=== PATIENT | female | born 1990 | race African-American/Black ===

== ENCOUNTER → 2020-06-05 | Outpatient (CLI) | payer OTHER ==
[2020-06-05 12:06] LABS: Basophils % (A) 0 %; Eosinophils % (A) 1 %; HCT 32.8 % (34.0-46.0); HGB 10.9 gm/dL (11.4-16.0); Lymphocytes # (A) 0.5 k/uL (1.0-4.8); Lymphocytes % (A) 10 %; MCH 36.7 pg (25.0-35.0); MCHC 33.2 g/dL (31.0-37.0); MCV 110.6 fL (80.0-100.0); Macrocytosis Marked; Mean Platelet Volume 7.6; Monocytes # (A) 0.3 k/uL (0-1.0); Monocytes % (A) 6 %; Neutrophils # (A) 4.2 k/uL (1.3-7.7); Neutrophils % (A) 81 %; Platelet Count 257 k/uL (150-450); RBC 2.97 m/uL (3.80-5.40); RDW 12.4 % (11.5-15.5); WBC 5.1 k/uL (3.8-10.6)
[2020-06-05 12:35] LABS: Poikilocytosis (M) Present
[2020-06-05 20:53] LABS: African American GFR (CKD) 142.8 (60.0-200.0); Albumin 3.9 g/dL (3.80-4.90); Albumin/Globulin Ratio 1.63 (1.60-3.17); Anion Gap 9.4 mmol/L (4.00-12.00); BUN/Creat Ratio 11.67 Ratio (12.00-20.00); Calcium 9.5 mg/dL (8.7-10.3); Carbon Dioxide 21.6 mmol/L (21.6-31.8); Globulin 2.4 g/dL (1.6-3.3); Non-African American GFR(CKD) 123.2 (60.0-200.0); Potassium 4.1 mmol/L (3.5-5.5); Total Bilirubin 0.9 mg/dL (0.2-1.2); Total Protein 6.3 g/dL (6.2-8.2)
== END | disposition home or self-care (01) ==
LOC: LABWHC1 11:04
PROVIDERS: ATTEND Internal Medicine Cardiovascular Disease
DX: R06.02 Shortness of breath (principal); R55 Syncope and collapse
CPT/HCPCS: 36415; 80053; 85025; 85379

== ENCOUNTER 2020-08-19 10:10 | Inpatient (IN) | payer OTHER ==
[2020-08-19 11:31] LABS: Basophils % (A) 0 %; Eosinophils % (A) 1 %; HCT 32.9 % (34.0-46.0); HGB 11.4 gm/dL (11.4-16.0); Lymphocytes # (A) 0.6 k/uL (1.0-4.8); Lymphocytes % (A) 15 %; MCH 36.5 pg (25.0-35.0); MCHC 34.6 g/dL (31.0-37.0); MCV 105.7 fL (80.0-100.0); Macrocytosis Slight; Monocytes # (A) 0.3 k/uL (0-1.0); Monocytes % (A) 8 %; Neutrophils # (A) 2.9 k/uL (1.3-7.7); Neutrophils % (A) 73 %; Platelet Count 188 k/uL (150-450); RBC 3.11 m/uL (3.80-5.40); RDW 12.5 % (11.5-15.5); WBC 3.9 k/uL (3.8-10.6)
[2020-08-19 11:42] LABS: ALT 18 U/L (4-34); AST 25 U/L (14-36); African American GFR (CKD) >90 (>60 ml/min/1.73 sqM); Blood Urea Nitrogen 6 mg/dL (7-17); Non-African American GFR(CKD) >90 (>60 ml/min/1.73 sqM); Uric Acid 5.1 mg/dL (3.7-7.4)
[2020-08-19 12:56] LABS: Creatinine,Urine Random 36.1 mg/dL; Protein/Creatinine Ratio,Urine 0.332
[2020-08-19] MEDS ORDERED: CITRIC ACID-SODIUM CITRATE 15 ML CUP PO ONE (14:32)
[2020-08-19] MEDS ORDERED: LACTATED RINGERS 1,000 ML IV ONE (14:32)
[2020-08-19] MEDS ORDERED: LACTATED RINGERS 1,000 ML IV SCH (14:45)
[2020-08-19] MEDS ORDERED: MORPHINE SULFATE (PF) 0.3 MG/0.3 ML SYR ONE (16:39)
[2020-08-19] MEDS ORDERED: ePHEDrine SULFATE/0.9% NACL/PF 50 MG/5 ML SYRINGE IV ONE (16:39)
[2020-08-19] MEDS ORDERED: ONDANSETRON 4 MG/2 ML VIAL ONE (16:39)
[2020-08-19] MEDS ORDERED: OXYTOCIN 10 UNIT/ML 1 ML VIAL ONE (16:39)
[2020-08-19] MEDS ORDERED: KETOROLAC 15 MG/ML 1 ML VIAL ONE (16:39)
[2020-08-19] MEDS ORDERED: diphenhydrAMINE 50 MG CAP PO PRN (17:13)
[2020-08-19] MEDS ORDERED: KETOROLAC 15 MG/ML 1 ML VIAL IVP PRN ×2 (17:13→22:11)
[2020-08-19] MEDS ORDERED: ONDANSETRON 4 MG/2 ML VIAL IVP PRN (17:13)
[2020-08-19] MEDS ORDERED: diphenhydrAMINE 50 MG/ML 1 ML VIAL IVP PRN ×2 (17:13)
[2020-08-19] MEDS ORDERED: METOCLOPRAMIDE 5 MG/ML 2 ML VIAL IVP PRN (17:13)
[2020-08-19] MEDS ORDERED: diphenhydrAMINE 25 MG CAP PO PRN (17:13)
[2020-08-19] MEDS ORDERED: NALOXONE 0.4 MG/ML 1 ML VIAL IV PRN (17:13)
[2020-08-19] MEDS ORDERED: HYDROcodone/APAP 7.5-325MG 1 EACH TAB PO PRN (17:13)
[2020-08-19] MEDS ORDERED: ZOLPIDEM 5 MG TAB PO PRN (17:13)
[2020-08-19] MEDS ORDERED: ACETAMINOPHEN TAB 325 MG TAB PO PRN (17:13)
--- NOTE | 2020-08-19 17:15 | P.HPOB ---
History of Present Illness H&P Date: 08/19/20 Chief Complaint: Regnancy at term: Mild preeclampsia Patient is a 30-year-old with a prior section that was seen in my office today. We had previously discussed versus trial of labor, however her cervix is closed and baby is not engaged and add exam during the section breech is noted. Due to her nonfavorable cervix and with her noted to have mild elevation blood pressure in the office 150/90 she was sent to labor and delivery for preeclamptic labs and serial blood pressures. In labor and delivery she had multiple abnormal blood pressures including 1 was 170/79 as well as multiple 150s over 90s. Due to the fact she is 37 weeks and has elevate blood pressures decision for delivery was made. She is noted to have normal labs other than her protein creatinine ratio which is 0.33. Suspected mild preeclampsia is noted and risks/benefits/alternatives to a repeat section were reviewed with the patient in detail and all questions were answered for her prior to proceeding to the operative room. Normal liver enzymes and p latelets are noted. Past Medical History Past Medical History: Asthma History of Any Multi-Drug Resistant Organisms: None Reported Past Surgical History: Section Past Anesthesia/Blood Transfusion Reactions: No Reported Reaction Past Psychological History: No Psychological Hx Reported Smoking Status: Never smoker Past Alcohol Use History: Occasional Past Drug Use History: None Reported - Past Family History Father Family Medical History: Diabetes Mellitus Medications and Allergies Home Medications Medication Instructions Recorded Confirmed Type Pnv No.95/Ferrous Fum/Folic AC 1 each PO DAILY 08/19/20 08/19/20 History [ Multivitamin Tablet] Allergies Allergy/AdvReac Type Severity Reaction Status Date / Time No Known Allergies Allergy Verified 08/19/20 10:20 Exam Osteopathic Statement: *. No significant issues noted on an osteopathic structural exam other than those noted in the History and Physical/Consult. Vital Signs Temp Pulse Resp BP 08/19/20 13:43 96.4 F L 67 16 136/86 08/19/20 13:27 137/78 08/19/20 11:10 67 16 137/92 Intake and Output 08/19/20 08/19/20 08/19/20 06:59 14:59 22:59 Other: # Voids 1 Weight 86.183 kg - OBG Physical Exam Breast: both: normal (no masses) Abdomen: bowel sounds normal, no diffuse tenderness, no bruit present, no guarding noted, no hepatomegaly, no splenomegaly, no mass Vulva: both: normal Vagina: normal moisture, no discharge Cervix: no lesion, no discharge Uterus: normal size, normal contour Adnexa: both: normal Anus/Rectum: normal perianal skin, no rectal mass, no hemorrhoids, heme negative Results Result Diagrams: 08/19/20 11:20 08/19/20 11:20 Abnormal Lab Results - Last 24 Hours (Table) 08/19/20 08/19/20 Range/Units 11:20 11:20 RBC 3.11 L (3.80-5.40) m/uL Hct 32.9 L (34.0-46.0) % MCV 105.7 H (80.0-100.0) fL MCH 36.5 H (25.0-35.0) pg Lymphocytes # 0.6 L (1.0-4.8) k/uL BUN 6 L (7-17) mg/dL
--- NOTE | 2020-08-19 17:19 | P.OP ---
Date of Procedure: 08/19/20 Preoperative Diagnosis: Intrauterine at term: Mild preeclampsia: Previous section Postoperative Diagnosis: Same with breech presentation (double footling) Procedure(s) Performed: Repeat low transverse section Anesthesia: spinal Surgeon: Berny Hernandez Medical Transcription #1: Nilay Jaffe Estimated Blood Loss (ml): 400 IV fluids (ml): 600 Urine output (ml): 200 Pathology: other (Placenta) Condition: stable Disposition: floor Operative Findings: Female scores of 9 and 9 at one and 5 minutes respectively and the weight was 5 lbs. 11 oz. Description of Procedure: Patient was taken to the operative suite where a spinal anesthetic was found be adequate. She was prepped and draped in the normal sterile fashion and placed in the dorsal supine position with leftward tilt. Initially a Pfannenstiel skin incision was made and this incision was then carried through to the underlying layer of the fascia with the second knife. Fascia was then nicked in the midline and this opening was extended laterally with Woodard scissors. Superior and inferior aspect of this incision were then grasped tented up and bluntly and sharply dissected off the rectus muscles. Rectus muscles were then divided the midline and sharp dissected peritoneum was performed. This opening was then extended superiorly and inferiorly with good visualization of both bowel bladder. Bladder blade was then placed bladder flap identified and entered with Metzenbaum scissors. This opening was then extended across face uterus with Metzenbaum scissors and the bladder was dissected out of the operative field once this was accomplished knife was used to incise uterus this opening was then fully extended with a hemostat and clear fluid is noted on artificial rupture membranes. It was noted prior to delivery that there was no presenting part and on investigation baby is noted to be in double footling breech presentation both feet are grasped and brought down into the incision with gentle traction we were able to deliver the buttocks and all the way to the shoulders arms were then swept from the face and with a nuchal cord 1 noted baby's head was easily delivered mouth nares are then bulb suctioned and baby was turned over to nursery personnel with the umbilical cord clamped and cut in usual fashion. Center was then delivered intact Pitocin was added to the IV. Uterus was then exteriorized cleared of clots and debris and closed in 2 layers with 0 Vicryl suture. Once excellent hemostasis was obtained blood and debris was suctioned from the posterior cul-de-sac and uterus was reinserted into the abdomen. Peritoneal layer was then reapproximated with 3-0 Vicryl. Fascial layer was closed with 0 Vicryl suture. One layer of 3-0 Vicryl was placed in deep subcuticular tissues to reapproximate skin and close space. Due to some keloiding with suture with her last delivery [place] were placed we'll plan to remove a few days after section to decrease risk of continued irrigation again. Sponge, lap, needle counts were all correct 2. Patient was then taken to the recovery room in stable and satisfactory condition.
[2020-08-19] MEDS: OXYTOCIN 30 UNITS/500 ML NS 30 UNIT in SALINE 1 500ML.BAG IV SCH ×2 (19:18→20:38)
[2020-08-19] MEDS ORDERED: ACETAMINOPHEN IV (For NPO) 1,000 MG in EMPTY BAG 1 BAG IVPB STA (19:31)
[2020-08-19] MEDS: LACTATED RINGERS 1,000 ML IV SCH (21:42)
[2020-08-19] MEDS: SENNOSIDES-DOCUSATE SODIUM 1 EACH TAB PO SCH (21:43)
[2020-08-20] MEDS: LACTATED RINGERS 1,000 ML IV SCH ×2 (00:54→20:29)
--- NOTE | 2020-08-20 07:51 | P.PN ---
Progress Note - Text Progress Note Date: 08/20/20 Postoperative day 1 status post section under spinal anesthesia and in trathecal Duramorph for postoperative analgesia.The patient is doing well, there is mild generalized skin itching. There are no other anesthesia related complications. The patient denies any paresthesia or weakness in the lower extremities. Further management as per the patient primary team.
[2020-08-20 08:12] LABS: Basophils % (A) 0 %; Eosinophils % (A) 1 %; HCT 25.4 % (34.0-46.0); Lymphocytes # (A) 0.5 k/uL (1.0-4.8); Lymphocytes % (A) 8 %; MCH 34.5 pg (25.0-35.0); MCHC 32.4 g/dL (31.0-37.0); MCV 106.4 fL (80.0-100.0); Macrocytosis Moderate; Mean Platelet Volume 10.1; Monocytes # (A) 0.2 k/uL (0-1.0); Monocytes % (A) 4 %; Neutrophils # (A) 5.2 k/uL (1.3-7.7); Neutrophils % (A) 86 %; Platelet Count 187 k/uL (150-450); RBC 2.39 m/uL (3.80-5.40); RDW 13.3 % (11.5-15.5)
[2020-08-20 08:14] LABS: HGB 8.2 gm/dL (11.4-16.0)
[2020-08-20] MEDS: SENNOSIDES-DOCUSATE SODIUM 1 EACH TAB PO SCH ×2 (08:39→20:30)
--- NOTE | 2020-08-20 09:50 | P.PNOBGPC ---
Subjective - Subjective Principal diagnosis: Postop day 1 Interval history: Patient is seen and evaluated. Last night she was having some passage of large clots and some suboptimal firmness to her uterus that she was having some increase in bleeding, I did come and evaluate her. However just before I came in the had switched the IV, and IV site and this seemed to resolve her bleeding and she has had scant bleeding ever since. She voices no complaints this morning. She is requesting shower and advancement of diet which we will do later today. All the questions are answered for her at this time. Her vital signs are stable and afebrile. It is noted that her lower is 8.2 this morning 11, however her initial CBC yesterday was done when she was dehydrated and between the time that she was admitted until the she got quite a bit of IV fluids which likely with skew this slightly. We'll likely discharge her home on iron supplementation however. Heart regular, lungs clear, extremities are without pain. Abdomen soft uterus is firm and her incision is otherwise intact. Assessment postop day 1. Plan continue current care. Objective - Vital Signs Latest vital signs: Vital Signs Temp Pulse Resp BP Pulse Ox 08/20/20 04:00 98.3 F 75 14 106/72 98 08/20/20 00:00 97.0 F L 86 14 112/69 100 08/19/20 21:10 97.2 F L 84 14 112/69 98 08/19/20 19:45 64 14 100 08/19/20 19:31 96.4 F L 81 14 129/86 100 08/19/20 19:00 67 16 122/78 97 08/19/20 18:30 64 16 128/73 100 08/19/20 18:15 66 16 136/70 100 08/19/20 18:00 68 18 118/72 100 08/19/20 17:45 70 16 123/71 99 08/19/20 17:31 96.9 F L 72 16 121/61 100 08/19/20 17:30 74 18 121/61 100 08/19/20 13:43 96.4 F L 67 16 136/86 08/19/20 13:27 137/78 08/19/20 11:10 67 16 137/92 Intake and Output 08/19/20 08/20/20 08/20/20 22:59 06:59 14:59 Intake Total 126.667 Output Total 400 1800 Balance -273.333 -1800 Intake: Intake, IV Titration 126.667 Amount Oxytocin 30 Units/500 ml 126.667 Ns 30 unit In Saline 1 500ml.bag @ Per Protocol IV .Q0M [facility] Rx#:[id number] Output: Urine 1800 Uretheral (Khalil) 800 Estimated Blood Loss 400 Other: Voiding Method Indwelling Catheter # Voids 0 - Labs Labs: Abnormal Lab Results - Last 24 Hours (Table) 08/19/20 08/19/20 08/20/20 Range/Units 11:20 11:20 07:23 RBC 3.11 L 2.39 L (3.80-5.40) m/uL Hgb 8.2 L D (11.4-16.0) gm/dL Hct 32.9 L 25.4 L (34.0-46.0) % MCV 105.7 H 106.4 H (80.0-100.0) fL MCH 36.5 H (25.0-35.0) pg Lymphocytes # 0.6 L 0.5 L (1.0-4.8) k/uL BUN 6 L (7-17) mg/dL
[2020-08-20] MEDS: IBUPROFEN 600 MG TAB PO PRN (20:29)
[2020-08-21] MEDS: LACTATED RINGERS 1,000 ML IV SCH (05:17)
[2020-08-21 05:30] VITALS: PULSE 99
[2020-08-21] MEDS: IBUPROFEN 600 MG TAB PO PRN (08:18)
[2020-08-21] MEDS: SENNOSIDES-DOCUSATE SODIUM 1 EACH TAB PO SCH (08:18)
[2020-08-21 08:44] VITALS: BP 140/86; RESP 16; TEMP 98.1
--- NOTE | 2020-08-21 12:05 | P.DS ---
Providers Date of admission: 08/19/20 13:34 Expected date of discharge: 08/21/20 Attending physician: Berny Hernandez Primary care physician: Stated None Hospital Course: Patient is doing very well postop day 2. She is ambulating, voiding and tolerating her diet. She voices no complaints. As it is likely been 2 days will plan to remove john on Monday in the office. Prescription from [employer] and Motrin to the pharmacy. All other questions are answered for her prior to discharge. Discharge instructions were thoroughly reviewed. On physical exam vital signs are stable and she is afebrile. She's had no significant elevations of her blood pressures since her . She is aware to monitor for headache, epigastric pain or visual changes and go to the emergency room or notify our office should these occur. Heart regular, lungs clear, extremities are without pain. Abdomen is soft uterus is firm and her incision is clean dry and intact. Assessment postop day 2. Plan discharged home follow up with me on Monday Patient Condition at Discharge: Good Plan - Discharge Summary New Discharge Prescriptions: No Action Pnv No.95/Ferrous Fum/Folic AC [ Multivitamin Tablet] 1 each PO DAILY Discharge Medication List Pnv No.95/Ferrous Fum/Folic AC [ Multivitamin Tablet] 1 each PO DAILY 08/19/20 [History] Follow up Appointment(s)/Referral(s): Berny Hernandez DO [Doctor of Osteopathic Medicine] - 3 Days Activity/Diet/Wound Care/Special Instructions: Stairs and driving, and pelvic rest. If any high temperatures, heavy bleeding, or severe pain call my office. No baths for 2 weeks minimum showering is fine. Follow-up in my office Monday for staple Discharge Disposition: HOME SELF-CARE
== END 2020-08-21 16:20 | disposition home or self-care (01) | DRG 788 ==
LOC: FBPOP 10:10 → 4FBP 13:34
PROVIDERS: ADMIT Obstetrics & Gynecology; ATTEND Obstetrics & Gynecology
PROC: 10D00Z1 Extraction of Products of Conception, Low, Open Approach (ICD-10-PCS; principal; 2020-08-19 16:30)
DX: O14.04 Mild to moderate pre-eclampsia, complicating childbirth (principal); O32.8XX0 Maternal care for other malpresentation of fetus, not applicable or unspecified; Z3A.37 37 weeks gestation of pregnancy; Z37.0 Single live birth; O34.211 Maternal care for low transverse scar from previous cesarean delivery; O99.52 Diseases of the respiratory system complicating childbirth; J45.909 Unspecified asthma, uncomplicated; Z83.3 Family history of diabetes mellitus
CPT/HCPCS: 59025; 82565; 82570; 84156; 84450; 84460; 84520; 84550; 85025; 88307

== ENCOUNTER 2021-06-18 21:43 | Outpatient (CLI) | payer OTHER ==
[2021-06-18 22:15] VITALS: BP 120/72; PULSE 84; RESP 16; TEMP 97.8
--- NOTE | 2021-06-24 09:04 | P.MSEPDOC ---
Presenting Problems - Arrival Data Date of Arrival on Unit: 06/18/21 Time of Arrival on Unit: 21:43 Mode of Transport: Wheelchair - Complaint OB-Reason for Admission/Chief Complaint: Visual Disturbances Comment: pt states she was feeling like she was going to pass out and "eyes went crossed" she had preclampsia with previous and wanted to get evaluated Medical History - Information : 3 Para: 2 Term: 1 : 1 Abortions: Spontaneous or Elective: 0 Number of Living Children: 2 - Gestational Age Gestational Age by ROSITA (wks/days): 22 Weeks and 1 Days Review of Systems - Review of Systems Constitutional: No problems Breast: No problems ENT: No problems Cardiovascular: No problems Respiratory: No problems Gastrointestinal: No problems Genitourinary: No problems Musculoskeletal: No problems Neurological: No problems Skin: No problems Vital Signs - Temperature Temperature: 97.8 F Temperature Source: Oral - Pulse Pulse Oximetery Pulse Rate: 84 Pulse Assessment Method: Pulse Oximetry - Respirations Respiratory Rate: 16 Oxygen Delivery Method: Room Air O2 Sat by Pulse Oximetry: 100 - Blood Pressure Right Arm Blood Pressure: 120/72 Blood Pressure Mean: 88 Blood Pressure Source: Automatic Cuff Medical Screen Scoring - Assessment - Baby A Baseline FHR: 150 Physician Notification - Physician Notified Physician Notified Date: 06/18/21 Physician Notified Time: 22:01 Physician: Berny Hernandez Order Received: Yes (d/c home) Maternal Triage Index - Maternal Triage Index Presenting for scheduled procedure w/no complaint: No - Stat/Priority 1 Stat Priority 1: No - Urgent/Priority 2 Urgent Priority 2: No - Prompt/Priority 3 Prompt Priority 3: No - Non-Urgent/Priority 4 Non-Urgent Priority 4: Yes Criteria Met for Priority 4: jessica notified of BP and symptoms. orders to d/c home Disposition - Disposition OB Disposition: Discharge to home Discharge Date: 06/18/21 Discharge Time: 22:06 I agree with the RN Medical Screening Exam: Yes Case reviewed; plan agreed upon as documented in EMR&OBIX.: Yes Diagnosis: RELATED CONDITIONS, UNSPECIFIED, SECOND TRIMESTER
== END 2021-06-18 22:06 | disposition home or self-care (01) ==
LOC: FBPOP 21:43
PROVIDERS: ATTEND Obstetrics & Gynecology
DX: O26.892 Other specified pregnancy related conditions, second trimester (principal); H53.9 Unspecified visual disturbance; Z3A.22 22 weeks gestation of pregnancy
CPT/HCPCS: 99213

== ENCOUNTER 2021-07-10 10:53 | Outpatient (CLI) | payer OTHER ==
[2021-07-10 11:36] LABS: Protein/Creatinine Ratio,Urine 0.133
[2021-07-10 12:07] LABS: Appearance,Urine Cloudy (Clear); Bacteria,Urine Rare /hpf; Bilirubin,Urine Negative (Negative); Blood,Urine Negative (Negative); Color,Urine Light Yellow; Glucose,Urine (UA) Negative (Negative); Ketones,Urine Negative (Negative); Leukocyte Esterase,Urine Negative (Negative); Mucus,Urine Rare /hpf; Nitrite,Urine Negative (Negative); PH, Urine 6.5 (5.0-8.0); Protein,Urine Negative (Negative); RBC,Urine <1 /hpf (0-5); Squamous Epithelial Cell,Urine 15 /hpf (0-4); Urobilinogen,Urine <2.0 mg/dL (<2.0); WBC,Urine 1 /hpf (0-5)
[2021-07-10 12:14] LABS: Basophils % (A) 0 %; Eosinophils # (A) 0.1 k/uL (0-0.7); Eosinophils % (A) 1 %; HCT 30.1 % (34.0-46.0); HGB 10.5 gm/dL (11.4-16.0); Lymphocytes # (A) 0.4 k/uL (1.0-4.8); Lymphocytes % (A) 10 %; MCH 36.3 pg (25.0-35.0); MCHC 34.9 g/dL (31.0-37.0); MCV 104.2 fL (80.0-100.0); Macrocytosis Slight; Mean Platelet Volume 8.3; Monocytes # (A) 0.3 k/uL (0-1.0); Monocytes % (A) 6 %; Neutrophils # (A) 3.7 k/uL (1.3-7.7); Neutrophils % (A) 82 %; Platelet Count 216 k/uL (150-450); RBC 2.89 m/uL (3.80-5.40); RDW 12.6 % (11.5-15.5); WBC 4.5 k/uL (3.8-10.6)
[2021-07-10 12:22] LABS: ALT 22 U/L (4-34); AST 25 U/L (14-36); African American GFR (CKD) >90 (>60 ml/min/1.73 sqM); Blood Urea Nitrogen 8 mg/dL (7-17); LDH 369 U/L (313-618); Non-African American GFR(CKD) >90 (>60 ml/min/1.73 sqM); Uric Acid 3.5 mg/dL (3.7-7.4)
[2021-07-10 12:38] VITALS: BP 104/60; PULSE 80; RESP 16; TEMP 96.5
--- NOTE | 2021-07-11 07:55 | P.MSEPDOC ---
Presenting Problems - Arrival Data Date of Arrival on Unit: 07/10/21 Time of Arrival on Unit: 11:00 Mode of Transport: Ambulatory - Complaint OB-Reason for Admission/Chief Complaint: Other Comment: labs Medical History - Information : 3 Para: 2 Term: 2 : 0 Abortions: Spontaneous or Elective: 0 Number of Living Children: 2 - Gestational Age Gestational Age by ROSITA (wks/days): 25 Weeks and 2 Days Review of Systems - Review of Systems Constitutional: No problems Breast: No problems ENT: No problems Cardiovascular: No problems Respiratory: No problems Gastrointestinal: No problems Genitourinary: No problems Musculoskeletal: No problems Neurological: No problems Skin: No problems Vital Signs - Temperature Temperature: 96.5 F Temperature Source: Tympanic - Pulse Right Brachial Pulse Rate: 80 Pulse Assessment Method: Automatic Cuff - Respirations Respiratory Rate: 16 Oxygen Delivery Method: Room Air - Blood Pressure Right Arm Blood Pressure: 104/60 Blood Pressure Mean: 74 Blood Pressure Source: Automatic Cuff Medical Screen Scoring - Assessment - Baby A Baseline FHR: 145 Heart Rate - NICHD Category: Category I (Normal) Physician Notification - Physician Notified Physician Notified Date: 07/10/21 Physician Notified Time: 12:37 Physician: Dr. North New Order Received: Yes - Notification Comment Comment: D/C home Maternal Triage Index - Scheduled/Requesting Priority 5 Scheduled/Requesting Priority 5: Yes Criteria Met for Priority 5: labs Disposition - Disposition OB Disposition: Discharge to home Discharge Date: 07/10/21 Discharge Time: 12:38 I agree with the RN Medical Screening Exam: Yes Case reviewed; plan agreed upon as documented in EMR&OBIX.: Yes Diagnosis: RELATED CONDITIONS, UNSPECIFIED, SECOND TRIMESTER (patient presents to labor and delivery for routine baseline blood work. Patient states that she had seen Dr. Price earlier in the week and was instructed to do blood work as an outpatient for baseline for preeclampsia. Patient was busy and didn't have time to do this so now presents to labor and delivery for these test. Patient's blood pressures low 106/60. Blood work is completely normal. There is no evidence of preeclampsia or hypertension at this time. Patient was instructed follow-up with Dr. Price as previously instructed.)
== END 2021-07-10 12:40 | disposition home or self-care (01) ==
LOC: FBPOP 10:53
PROVIDERS: ATTEND Obstetrics & Gynecology
DX: O26.92 Pregnancy related conditions, unspecified, second trimester (principal); Z3A.25 25 weeks gestation of pregnancy
CPT/HCPCS: 81001; 82565; 82570; 83615; 84156; 84450; 84460; 84520; 84550; 85025

== ENCOUNTER → 2021-07-10 | Outpatient (CLI) | payer OTHER | END | disposition home or self-care (01) | LOC: LABWHC1 09:38 | PROVIDERS: ATTEND Obstetrics & Gynecology | DX: Z34.82 Encounter for supervision of other normal pregnancy, second trimester (principal); Z3A.00 Weeks of gestation of pregnancy not specified | CPT/HCPCS: 36415; 82950 ==

== ENCOUNTER 2021-10-11 10:01 | Inpatient (IN) | payer OTHER ==
[2021-10-06 12:09] VITALS: BMI 30.9
--- NOTE | 2021-10-11 07:14 | P.HPOB ---
History of Present Illness H&P Date: 10/11/21 Chief Complaint: 31 year old presents at 39 weeks for repeat low transverse . Review of Systems All systems: negative Constitutional: Denies chills, Denies fever Eyes: denies blurred vision, denies pain Ears, nose, mouth and throat: Denies headache, Denies sore throat Cardiovascular: Denies chest pain, Denies shortness of breath Respiratory: Denies cough Gastrointestinal: Denies abdominal pain, Denies diarrhea, Denies nausea, Denies vomiting Genitourinary: Denies dysuria, Denies hematuria Musculoskeletal: Denies myalgias Integumentary: Denies pruritus, Denies rash Neurological: Denies numbness, Denies weakness Psychiatric: Denies anxiety, Denies depression Endocrine: Denies fatigue, Denies weight change Past Medical History Past Medical History: Asthma History of Any Multi-Drug Resistant Organisms: None Reported Past Surgical History: Section Additional Past Surgical History / Comment(s): CS X2 Past Anesthesia/Blood Transfusion Reactions: No Reported Reaction Smoking Status: Never smoker - Past Family History Father Family Medical History: Diabetes Mellitus Medications and Allergies Home Medications Medication Instructions Recorded Confirmed Type Pnv No.95/Ferrous Fum/Folic AC 1 each PO DAILY 08/19/20 10/06/21 History [ Multivitamin Tablet] Allergies Allergy/AdvReac Type Severity Reaction Status Date / Time No Known Allergies Allergy Verified 10/06/21 12:03 Exam Osteopathic Statement: *. No significant issues noted on an osteopathic structural exam other than those noted in the History and Physical/Consult. Heart: Regular rate and rhythm Lungs: Clear to auscultation bilaterally Abdomen: Soft, nontender Extremities: Negative Homans sign Assessment and Plan (1) 39 weeks gestation of Status: Acute Code(s): Z3A.39 - 39 WEEKS GESTATION OF SNOMED Code(s): 47231391 (2) Previous section Status: Acute Code(s): Z98.891 - HISTORY OF UTERINE SCAR FROM PREVIOUS SURGERY SNOMED Code(s): 160820780 Plan: 1. Repeat Low Transverse
[2021-10-11] MEDS ORDERED: AMPICILLIN 2,000 MG in SODIUM CHLORIDE 0.9% 100 ML IVPB STA (10:39)
[2021-10-11] MEDS ORDERED: CARBOPROST TROMETHAMINE 250 MCG/ML 1 ML AMP IM PRN (10:39)
[2021-10-11] MEDS ORDERED: METHYLERGONOVINE 0.2 MG/ML 1 ML AMP IM PRN (10:39)
[2021-10-11] MEDS ORDERED: OXYTOCIN 10 UNIT/ML 1 ML VIAL IM PRN (10:39)
[2021-10-11] MEDS ORDERED: LACTATED RINGERS 1,000 ML IV SCH ×2 (10:45)
[2021-10-11 11:00] LABS: Basophils % (A) 0 %; Eosinophils # (A) 0.1 k/uL (0-0.7); Eosinophils % (A) 2 %; HCT 35.1 % (34.0-46.0); Lymphocytes # (A) 0.7 k/uL (1.0-4.8); Lymphocytes % (A) 12 %; MCHC 34.2 g/dL (31.0-37.0); MCV 105.2 fL (80.0-100.0); Macrocytosis Slight; Monocytes # (A) 0.3 k/uL (0-1.0); Monocytes % (A) 6 %; Neutrophils # (A) 4.4 k/uL (1.3-7.7); Neutrophils % (A) 78 %; Platelet Count 157 k/uL (150-450); RBC 3.34 m/uL (3.80-5.40); RDW 12.6 % (11.5-15.5); WBC 5.6 k/uL (3.8-10.6)
[2021-10-11] MEDS ORDERED: CITRIC ACID-SODIUM CITRATE 15 ML CUP PO ONE (11:04)
[2021-10-11] MEDS ORDERED: ONDANSETRON 4 MG/2 ML VIAL ONE (12:01)
[2021-10-11] MEDS ORDERED: OXYTOCIN 30 UNITS/500 ML NS BAG IV ONE (12:01)
[2021-10-11] MEDS ORDERED: MORPHINE SULFATE (PF) 0.3 MG/0.3 ML SYR ONE (12:01)
--- NOTE | 2021-10-11 12:43 | P.OP ---
Date of Procedure: 10/11/21 Preoperative Diagnosis: 1. at 39 weeks 2. previous Postoperative Diagnosis: 1. at 39 weeks 2. previous Procedure(s) Performed: Repeat low transverse Anesthesia: spinal Surgeon: Megan Kilpatrick Manager Call Center #1: Nilay Jaffe Estimated Blood Loss (ml): 375 IV fluids (ml): 1,000 Urine output (ml): 400 Pathology: none sent Condition: stable Disposition: floor Operative Findings: Viable female, Apgars 9, 9, weight 6 lbs. 9 oz. Normal uterus, tubes, ovaries. Description of Procedure: Patient was taken to the operating room where spinal anesthesia was found be adequate. She was prepped and draped in normal sterile fashion in dorsal supine position with a leftward tilt. Pfannenstiel skin incision was made the scalpel and carried through to the underlying layer of fascia with the scalpel. Old incision removed. Fascia was incised in midline and carried bilaterally with the Woodard scissors. The superior aspect of the fascial incision was grasped with [place] clamps elevated and the underlying rectus muscles dissected off with the Woodard's. Attention was then turned to inferior aspect of same incision which in a similar fashion was grasped tented up and the underlying rectus muscles dissected off with the Woodard's. The rectus muscles were the midline and the peritoneum was identified tented up and entered sharply with the s calpel. The incision was extended superiorly and inferiorly with good visualization of the bladder. The bladder blade was inserted and the vesicouterine peritoneum was incised the Metzenbaums then carried bilaterally and bladder flap created digitally. A low transverse incision was then made on the uterus with the scalpel. This was carried bilaterally and digital manner. 's head delivered atraumatically, nose and mouth bulb suctioned, cord clamped and cut, handed off to waiting nurses. Apgars 9,9, weight 6 lbs. 9 oz. Placenta delivered manually, intact with three-vessel cord. The uterus is exteriorized and cleared of all clots and debris. The uterine incision was closed with 0 Vicryl in a running locked fashion. Second layer of the same sutures used in imbricating fashion to obtain excellent hemostasis. Both ovaries and tubes appeared normal. The uterus was placed back into the abdomen. The peritoneum was reapproximated using 2-0 Vicryl in a running fashion. The muscles were reapproximated using 2-0 Vicryl in interrupted fashion. The fascia was reapproximated using 0 Vicryl in a running fashion. The subcutaneous tissues closed with 3-0 Vicryl running fashion. The skin was closed john. Patient tolerated the procedure well, sponge and instrument counts were correct times 2 and she was taken to the recovery room in stable condition.
[2021-10-11] MEDS ORDERED: METOCLOPRAMIDE 5 MG/ML 2 ML VIAL IVP PRN (12:44)
[2021-10-11] MEDS ORDERED: diphenhydrAMINE 50 MG/ML 1 ML VIAL IVP PRN ×2 (12:44)
[2021-10-11] MEDS ORDERED: NALOXONE 0.4 MG/ML 1 ML VIAL IV PRN (12:44)
[2021-10-11] MEDS ORDERED: ZOLPIDEM 5 MG TAB PO PRN (12:44)
[2021-10-11] MEDS ORDERED: diphenhydrAMINE 25 MG CAP PO PRN (12:44)
[2021-10-11] MEDS ORDERED: LANOLIN CREAM 5 GM TUBE TOPICAL PRN (12:44)
[2021-10-11] MEDS ORDERED: ONDANSETRON 4 MG/2 ML VIAL IVP PRN (12:44)
[2021-10-11] MEDS ORDERED: diphenhydrAMINE 50 MG CAP PO PRN (12:44)
[2021-10-11] MEDS ORDERED: OXYTOCIN 30 UNITS/500 ML NS 30 UNIT in SALINE 1 500ML.BAG IV SCH (12:45)
[2021-10-11] MEDS: ACETAMINOPHEN TAB 500 MG TAB PO SCH (16:04)
[2021-10-11] MEDS: LACTATED RINGERS 1,000 ML IV SCH (18:00)
[2021-10-11] MEDS: KETOROLAC 30 MG/ML 1 ML VIAL IVP SCH (20:03)
[2021-10-11] MEDS: SENNOSIDES-DOCUSATE SODIUM 1 EACH TAB PO SCH (20:03)
[2021-10-12] MEDS: SIMETHICONE 80 MG CHEWABLE PO PRN ×4 (04:55→19:54)
--- NOTE | 2021-10-12 07:12 | P.PN ---
Progress Note - Text Progress Note Date: 10/12/21 Patient seen and examined at bedside POD 1 s/p repeat with spinal duramorph. Patient reports pain well controlled. Patient able to ambulate without difficulty. Motor and sensory strength is back to baseline. Patient denies ANDERSON, F/C, N/V. Will continue to follow.
[2021-10-12] MEDS: LACTATED RINGERS 1,000 ML IV SCH ×3 (07:46→17:50)
[2021-10-12] MEDS: KETOROLAC 30 MG/ML 1 ML VIAL IVP SCH (07:48)
[2021-10-12] MEDS: ACETAMINOPHEN TAB 500 MG TAB PO SCH ×4 (07:48→17:50)
[2021-10-12] MEDS: SENNOSIDES-DOCUSATE SODIUM 1 EACH TAB PO SCH ×2 (07:55→19:54)
[2021-10-12] MEDS: PRENATAL VIT-IRON-FOLIC ACID 1 EACH CAP PO SCH (08:01)
--- NOTE | 2021-10-12 08:12 | P.PNOBGPC ---
Subjective - Subjective Principal diagnosis: S/P RLTCS POD #1 Interval history: Pt seen and examined. Pain controlled. Tolerating reg diet and passing flatus. Patient reports: Reports appetite normal, Reports voiding normally, Reports pain well controlled, Reports ambulating normally [place]: doing well Objective - Vital Signs Latest vital signs: Vital Signs Temp Pulse Resp BP Pulse Ox 10/12/21 04:00 98.0 F 76 16 101/74 10/12/21 00:00 97.9 F 66 16 105/70 10/11/21 19:57 97.4 F L 69 16 110/72 10/11/21 15:54 63 18 108/73 10/11/21 15:10 97.8 F 60 16 114/69 100 10/11/21 14:40 62 18 108/73 100 10/11/21 14:10 67 18 121/60 100 10/11/21 13:55 57 L 18 112/70 100 10/11/21 13:40 55 L 18 109/65 100 10/11/21 13:25 70 18 108/63 100 10/11/21 13:10 97.2 F L 85 18 103/55 100 10/11/21 10:38 97.0 F L 87 16 124/68 98 Intake and Output 10/11/21 10/12/21 10/12/21 22:59 06:59 14:59 Intake Total 925 Output Total 2850 Balance -1925 Intake: IV 125 Oral 800 Output: Urine 2850 Uretheral (Khalil) 2000 Other: # Voids 2 1 - Exam Lungs: bilateral: normal Chest: Normal S1, Normal S2 Extremities: Present: normal Abdomen: Present: normal appearance, soft. Absent: distention, tenderness Incision: Present: normal, dry, intact Uterus: Present: normal, firm - Labs Labs: Abnormal Lab Results - Last 24 Hours (Table) 10/11/21 Range/Units 10:40 RBC 3.34 L (3.80-5.40) m/uL MCV 105.2 H (80.0-100.0) fL MCH 36.0 H (25.0-35.0) pg Lymphocytes # 0.7 L (1.0-4.8) k/uL Assessment and Plan (1) 39 weeks gestation of Current Visit: No Status: Resolved Code(s): Z3A.39 - 39 WEEKS GESTATION OF SNOMED Code(s): 65369769 (2) Previous section Current Visit: No Status: Resolved Code(s): Z98.891 - HISTORY OF UTERINE SC AR FROM PREVIOUS SURGERY SNOMED Code(s): 069239635 (3) Status post repeat low transverse section Current Visit: Yes Status: Acute Code(s): Z98.891 - HISTORY OF UTERINE SCAR FROM PREVIOUS SURGERY SNOMED Code(s): 738525162 Plan: 1. po pain meds 2. increase ambulation
[2021-10-12 08:45] LABS: Basophils % (A) 0 %; Eosinophils # (A) 0.1 k/uL (0-0.7); Eosinophils % (A) 1 %; Lymphocytes # (A) 0.5 k/uL (1.0-4.8); Lymphocytes % (A) 6 %; MCH 36.2 pg (25.0-35.0); MCHC 34.3 g/dL (31.0-37.0); MCV 105.7 fL (80.0-100.0); Macrocytosis Slight; Mean Platelet Volume 10.2; Monocytes # (A) 0.3 k/uL (0-1.0); Monocytes % (A) 4 %; Neutrophils # (A) 6.2 k/uL (1.3-7.7); Neutrophils % (A) 88 %; Platelet Count 183 k/uL (150-450); RBC 3.03 m/uL (3.80-5.40); RDW 12.9 % (11.5-15.5)
[2021-10-12] MEDS: IBUPROFEN 600 MG TAB PO SCH (17:50)
[2021-10-12 20:28] VITALS: RESP 16
[2021-10-13] MEDS: IBUPROFEN 600 MG TAB PO SCH ×3 (01:19→08:16)
[2021-10-13] MEDS: ACETAMINOPHEN TAB 500 MG TAB PO SCH (04:06)
--- NOTE | 2021-10-13 07:34 | P.PNOBGPC ---
Subjective - Subjective Principal diagnosis: S/P RLTCS POD #2 Interval history: Seen and examined. Denies nausea, vomiting, chest pain, shortness of breath or any calf pain. Her pain is well-controlled and she is tolerating regular diet, passing flatus. Patient reports: Reports appetite normal, Reports voiding normally, Reports pain well controlled, Reports ambulating normally [place]: doing well (being treated for Jaundice) Objective - Vital Signs Latest vital signs: Vital Signs Temp Pulse Resp BP Pulse Ox 10/12/21 20:00 98.4 F 96 16 120/79 10/12/21 16:00 98.3 F 98 18 112/98 97 10/12/21 12:00 98.5 F 73 18 91/56 99 10/12/21 08:00 98.6 F 69 18 107/66 98 Intake and Output 10/12/21 10/13/21 10/13/21 22:59 06:59 14:59 Other: # Voids 4 - Exam Lungs: bilateral: normal Chest: Normal S1, Normal S2 Extremities: Present: normal Abdomen: Present: normal appearance, soft. Absent: distention, tenderness Incision: Present: normal, dry, intact Uterus: Present: normal, firm - Labs Labs: Abnormal Lab Results - Last 24 Hours (Table) 10/12/21 Range/Units 08:27 RBC 3.03 L (3.80-5.40) m/uL Hgb 11.0 L (11.4-16.0) gm/dL Hct 32.0 L (34.0-46.0) % MCV 105.7 H (80.0-100.0) fL MCH 36.2 H (25.0-35.0) pg Lymphocytes # 0.5 L (1.0-4.8) k/uL Assessment and Plan (1) Status post repeat low transverse section Current Visit: Yes Status: Acute Code(s): Z98.891 - HISTORY OF UTERINE SCAR FROM PREVIOUS SURGERY SNOMED Code(s): 661412334 Plan: 1. increase ambulation
[2021-10-13] MEDS: SIMETHICONE 80 MG CHEWABLE PO PRN (08:14)
[2021-10-13] MEDS: SENNOSIDES-DOCUSATE SODIUM 1 EACH TAB PO SCH (08:14)
[2021-10-13] MEDS: PRENATAL VIT-IRON-FOLIC ACID 1 EACH CAP PO SCH (10:43)
[2021-10-13 18:28] VITALS: BP 117/70; PULSE 73; TEMP 98.2
== END 2021-10-13 19:00 | disposition home or self-care (01) | DRG 788 ==
LOC: 4FBP 10:01
PROVIDERS: ADMIT Obstetrics & Gynecology; ATTEND Obstetrics & Gynecology
PROC: 10D00Z1 Extraction of Products of Conception, Low, Open Approach (ICD-10-PCS; principal; 2021-10-11 12:00)
DX: O34.211 Maternal care for low transverse scar from previous cesarean delivery (principal); J45.909 Unspecified asthma, uncomplicated; O99.52 Diseases of the respiratory system complicating childbirth; Z37.0 Single live birth; Z3A.39 39 weeks gestation of pregnancy
CPT/HCPCS: 85025; 86850; 86900; 86901

== ENCOUNTER → 2021-12-13 | Outpatient (CLI) | payer OTHER ==
--- NOTE | 2021-12-13 21:45 | MR ---
EXAMINATION TYPE: MR tspine/lspine wo con DATE OF EXAM: 12/13/2021 COMPARISON: NONE HISTORY: Mid back pain and low back pain that radiates down both legs. TECHNIQUE: Multiplanar, multisequence imaging of the thoracic and lumbar spine are performed without IV contrast. FINDINGS: T-SPINE: Spinal cord shows normal caliber and signal as it courses the thoracic spine. Slight levoconvex scol iotic curvature centered upper to mid thoracic spine on coronal images. Vertebral body heights and al ignment are satisfactory on sagittal images. There is disc desiccation with mild to moderate disc spa ce narrowing anteriorly having heterogeneous Modic type I endplate changes and mild/moderate anterior spurring at the anterior T10-T11 level. Tiny posterior disc herniations are mildly facing the anteri or thecal sac at nearly all levels in the thoracic spine . Review of the axial images shows no large focal disc herniation. Bilateral neural foramina are patent at all thoracic levels. Trace bilateral pleural effusions are seen in the lower lungs. Visualized up per abdomen is unremarkable. IMPRESSION: Slight scoliotic curvature with mild multilevel degenerative changes as detailed above. L-SPINE: Sagittal images of the lumbar spine show vertebral body heights and alignment to appear satisfactory. There is disc desiccation with mild to moderate disc space narrowing T12-L1 level otherwise the inte rvertebral discs demonstrate normal heights and hydration. The conus medullaris is normal in positio n and signal ending at the inferior L1 level. The bone marrow signal intensity is within normal limi ts. Axial images at T12-L1 and L1-L2 levels show tiny central disc protrusion slightly effacing anterior thecal sac. Axial images at L2-L3 and L3-L4 levels appear within normal limits. Axial images at L4-L5 level show mild broad disc bulge mildly effacing the anterior thecal sac, paten t bilateral neural foramina. Axial images at L5-S1 levels with moderate facet arthropathy bilaterally. Spinal canal is preserved. Patent bilateral neural foramina. Paraspinal muscle bulk is preserved.. IMPRESSION: Mild multilevel degenerative changes of lumbar spine as detailed above.
== END | disposition home or self-care (01) ==
LOC: RADMRIMAIN 14:44
PROVIDERS: ATTEND Family Medicine
DX: M47.26 Other spondylosis with radiculopathy, lumbar region (principal); M47.24 Other spondylosis with radiculopathy, thoracic region; M41.84 Other forms of scoliosis, thoracic region
CPT/HCPCS: 72146; 72148

== ENCOUNTER 2024-05-06 14:44 | Emergency (ER) | payer OTHER ==
--- NOTE | 2024-05-06 15:02 | ED ---
GI Bleed HPI - General Source: patient, RN notes reviewed Mode of arrival: ambulatory Limitations: no limitations <Xochitl Yost - Last Filed: 05/06/24 15:01> <Rosalva Rojas - Last Filed: 05/06/24 18:43> - General Stated complaint: GI issues Time Seen by Provider: 05/06/24 15:01 - History of Present Illness Initial comments: Quick note: 34-year-old female presented to the ER with a chief complaint of rectal bleeding. Patient states this been ongoing for a couple of years. She has intermittent problems with constipation. She reports bright red blood per stool. No blood thinner use. She says it has significantly worsened which b rought her to the ER. She also was endorsing lower abdominal pain. No history of inflammatory bowel disease. No significant past medical history. (Xochitl Yost) 34-year-old female presents emergency department chief complaint of rectal pain with defecation and rectal bleeding. Patient states that she has been having this ongoing problem for the past couple years and saw her primary care provider in regards to this and was advised to follow-up with general surgeon however she missed this appointment approximately a year ago. States that she has been having bright red blood per stool and has intermittent constipation. (Rosalva Rojas) - Related Data Home Medications Medication Instructions Recorded Confirmed Pnv No.95/Ferrous Fum/Folic AC 1 each PO DAILY 08/19/20 10/11/21 [ Multivitamin Tablet] Previous Rx's Medication Instructions Recorded Ibuprofen [Motrin] 600 mg PO Q6HR #40 tab 10/13/21 oxyCODONE HCL [OxyIR] 5 mg PO Q6HR PRN #12 tab 10/13/21 Docusate [Colace] 100 mg PO BID #28 capsule 05/06/24 Allergies Allergy/AdvReac Type Severity Reaction Status Date / Time No Known Allergies Allergy Verified 05/06/24 15:05 Review of Systems ROS Other: All systems not noted in ROS Statement are negative. <Xochitl Yost - Last Filed: 05/06/24 15:01> ROS Other: All systems not noted in ROS Statement are negative. <Rosalva Rojas - Last Filed: 05/06/24 18:43> ROS Statement: Those systems with pertinent positive or pertinent negative responses have been documented in the HPI. Past Medical History Past Medical History: Asthma History of Any Multi-Drug Resistant Organisms: None Reported Past Surgical History: Section Additional Past Surgical History / Comment(s): CS X2 Past Anesthesia/Blood Transfusion Reactions: No Reported Reaction Past Psychological History: No Psychological Hx Reported Smoking Status: Never smoker Past Alcohol Use History: None Reported Past Drug Use History: None Reported - Past Family History Father Family Medical History: Diabetes Mellitus, Hypertension <Xochitl Yost - Last Filed: 05/06/24 15:01> General Exam <Xochitl Yost - Last Filed: 05/06/24 15:01> General appearance: alert, in no apparent distress Head exam: Present: atraumatic, normocephalic, normal inspection Eye exam: Present: normal appearance, PERRL, EOMI. Absent: scleral icterus, conjunctival injection, periorbital swelling ENT exam: Present: normal exam, mucous membranes moist Respiratory exam: Present: normal lung sounds bilaterally. Absent: respiratory distress, wheezes, rales, rhonchi, stridor Cardiovascular Exam: Present: regular rate, normal rhythm, normal heart sounds. Absent: systolic murmur, diastolic murmur, rubs, gallop, clicks GI/Abdominal exam: Present: soft, normal bowel sounds. Absent: distended, tenderness, guarding, rebound, rigid Rectal exam: Present: normal rectal tone, hemorrhoids, tenderness Extremities exam: Present: normal inspection, full ROM, normal capillary refill. Absent: tenderness, pedal edema, joint swelling, calf tenderness Back exam: Present: normal inspection Skin exam: Present: warm, dry, intact, normal color. Absent: rash <Rosalva Rojas - Last Filed: 05/06/24 18:43> - General Exam Comments Initial Comments: Visual Physical Exam Vital signs reviewed General: Well-appearing, nontoxic, no acute distress. Head: Normocephalic, atraumatic Eyes: PERRLA, EOMI ENT: Airway patent Chest: Nonlabored breathing Skin: No visual rash, normal skin tone Neuro: Alert and oriented 3 Musculoskeletal: No gross abnormalities (Xochitl Yost) Course Vital Signs 05/06/24 15:02 Temperature 98.2 F Pulse Rate 88 Respiratory 18 Rate Blood Pressure 136/83 O2 Sat by Pulse 99 Oximetry Medical Decision Making <Xochitl Yost - Last Filed: 05/06/24 15:01> - Lab Data Result diagrams: 05/06/24 15:56 05/06/24 15:56 <Rosalva Rojas - Last Filed: 05/06/24 18:43> - Medical Decision Making I performed the quick note portion of this chart. Electronically signed by Xochitl Yost PA-C (Xochitl Yost) Was pt. sent in by a medical professional or institution (, [facility], MIDDLE SCHOOL COACH, urgent care, hospital, or prison...) When possible be specific @ -No Did you speak to anyone other than the patient for history (EMS, parent, family, police, friend...)? What history was obtained from this source @ -No Did you review nursing and triage notes (agree or disagree)? Why? @ -I reviewed and agree with nursing and triage notes Were old charts reviewed (outside hosp., previous admission, EMS record, old EKG, old radiological studies, urgent care reports/EKG's, prison records)? Report findings @ -No old charts were reviewed Differential Diagnosis (chest pain, altered mental status, abdominal pain women, abdominal pain men, vaginal bleeding, weakness, fever, dyspnea, syncope, headache, dizziness, GI bleed, back pain, seizure, CVA, palpatations, mental health, musculoskeletal)? @ -Differential GI Bleed: Esophageal varices, aortoenteric fistula, Paige-Hopper, gastritis, peptic ulcer disease, diverticulosis, inflammatory bowel disease, hemorrhoids, fissure, colitis, malignancy, Meckel's diverticulum, this is not meant to be an all- inclusive list. EKG interpreted by me (3pts min.). @ -None X-rays interpreted by me (1pt min.). @ -None done CT interpreted by me (1pt min.). @ -None done U/S interpreted by me (1pt. min.). @ -None done What testing was considered but not performed or refused? (CT, X-rays, U/S, labs)? Why? @ -None What meds were considered but not given or refused? Why? @ -None Did you discuss the management of the patient with other professionals (professionals i.e. , [facility], MIDD[employer] SCHOOL COACH, lab, RT, psych nurse, pediatric social worker, web operations administrator, teacher, senior commercial loan officer, upper caser)? Give summary @ -No Was smoking cessation discussed for >3mins.? @ -No Was critical care preformed (if so, how long)? @ -No Were there social determinants of health that impacted care today? How? (Homelessness, low income, unemployed, alcoholism, drug addiction, transportation, low edu. Level, literacy, decrease access to med. care, [place] [facility], rehab)? @ -No Was there de-escalation of care discussed even if they declined (Discuss DNR or withdrawal of care, Hospice)? DNR status @ -No What co-morbidities impacted this encounter? (DM, HTN, Smoking, COPD, CAD, Cancer, CVA, ARF, Chemo, Hep., AIDS, mental health diagnosis, sleep apnea, morbid obesity)? @ -None Was patient admitted / discharged? Hospital course, mention meds given and route, prescriptions, significant lab abnormalities, going to OR and other perti nent info. @ -discharged. 34-year-old female with GI bleed. Patient was originally evaluated as a quick note where laboratory studies were ordered. My evaluation the patient noted to have severe external hemorrhoids with no signs of incarceration. Patient has pain to palpation of the rectum. CBC reveals mild anemia with a hemoglobin 10.2 and hematocrit of 32.1, coagulation profile within normal limits, CMP no acute findings, amylase and lipase within normal limits, urinalysis negative for signs of infection, hCG negative. Patient is prescribed stool softener and recommended to increase oral hydration, use sitz bath's, Preparation H at home and follow-up outpatient with general surgery for further evaluation. All questions answered at bedside and strict return parameters disc ussed with the patient she is verbalized understanding. discussed with Dr. Hall. Undiagnosed new problem with uncertain prognosis? @ -No Drug Therapy requiring intensive monitoring for toxicity (Heparin, Nitro, Insulin, Cardizem)? @ -No Were any procedures done? @ -No Diagnosis/symptom? @ -Hemorrhoids, rectal pain Acute, or Chronic, or Acute on Chronic? @ -acute Uncomplicated (without systemic symptoms) or Complicated (systemic symptoms)? @ - uncomplicated Side effects of treatment? @ -No Exacerbation, Progression, or Severe Exacerbation? @ -No Poses a threat to life or bodily function? How? (Chest pain, [place], [place], pneumonia, PE, COPD, DKA, ARF, appy, cholecystitis, CVA, Diverticulitis, Homicidal, Suicidal, threat to staff... and all critical care pts) @ -No (Rosalva Rojas) - Lab Data Lab Results 05/06/24 05/06/24 05/06/24 Range/Units 15:56 15:56 15:56 WBC 3.2 L (3.8-10.6) k/uL RBC 3.34 L (3.80-5.40) m/uL Hgb 10.2 L (11.4-16.0) gm/dL Hct 32.1 L (34.0-46.0) % MCV 96.2 (80.0-100.0) fL MCH 30.6 (25.0-35.0) pg MCHC 31.8 (31.0-37.0) g/dL RDW 12.6 (11.5-15.5) % Plt Count 341 (150-450) k/uL MPV 7.6 Neutrophils % 71 % Lymphocytes % 19 % Monocytes % 5 % Eosinophils % 1 % Basophils % 0 % Neutrophils # 2.3 (1.3-7.7) k/uL Lymphocytes # 0.6 L (1.0-4.8) k/uL Monocytes # 0.2 (0-1.0) k/uL Eosinophils # 0.0 (0-0.7) k/uL Basophils # 0.0 (0-0.2) k/uL Hypochromasia Slight PT 10.9 (10.0-12.5) sec INR 1.0 (<1.2) APTT 22.0 (22.0-30.0) sec Sodium (137-145) mmol/L Potassium (3.5-5.1) mmol/L Chloride (98-107) mmol/L Carbon Dioxide (22-30) mmol/L Anion Gap mmol/L BUN (7-17) mg/dL Creatinine (0.52-1.04) mg/dL Est GFR (CKD-EPI)AfAm (>60 ml/min/1.73 sqM) Est GFR (CKD-EPI)NonAf (>60 ml/min/1.73 sqM) Glucose (74-99) mg/dL Plasma Lactic Acid Janes (0.7-2.0) mmol/L Calcium (8.4-10.2) mg/dL Total Bilirubin (0.2-1.3) mg/dL AST (14-36) U/L ALT (4-34) U/L Alkaline Phosphatase (38-126) U/L Total Protein (6.3-8.2) g/dL Albumin (3.5-5.0) g/dL Amylase (30-110) U/L Lipase (23-300) U/L Urine Color Light Yellow Urine Appearance Cloudy H (Clear) Urine pH 6.0 (5.0-8.0) Ur Specific [place] 1.025 (1.001-1.035) Urine Protein Negative (Negative) Urine Glucose (UA) Negative (Negative) Urine Ketones Negative (Negative) Urine Blood Negative (Negative) Urine Nitrite Negative (Negative) Urine Bilirubin Negative (Negative) Urine Urobilinogen <2.0 (<2.0) mg/dL Ur Leukocyte Esterase Negative (Negative) Urine RBC 2 (0-5) /hpf Urine WBC 5 (0-5) /hpf Ur Squamous Epith Cells 9 H (0-4) /hpf Urine Bacteria Rare H (None) /hpf Urine Mucus Few H (None) /hpf Urine HCG, Qual (Not Detectd) 05/06/24 05/06/24 05/06/24 Range/Units 15:56 15:56 15:56 WBC (3.8-10.6) k/uL RBC (3.80-5.40) m/uL Hgb (11.4-16.0) gm/dL Hct (34.0-46.0) % MCV (80.0-100.0) fL MCH (25.0-35.0) pg MCHC (31.0-37.0) g/dL RDW (11.5-15.5) % Plt Count (150-450) k/uL MPV Neutrophils % % Lymphocytes % % Monocytes % % Eosinophils % % Basophils % % Neutrophils # (1.3-7.7) k/uL Lymphocytes # (1.0-4.8) k/uL Monocytes # (0-1.0) k/uL Eosinophils # (0-0.7) k/uL Basophils # (0-0.2) k/uL Hypochromasia PT (10.0-12.5) sec INR (<1.2) APTT (22.0-30.0) sec Sodium 140 (137-145) mmol/L Potassium 4.0 (3.5-5.1) mmol/L Chloride 108 H (98-107) mmol/L Carbon Dioxide 23 (22-30) mmol/L Anion Gap 9 mmol/L BUN 17 (7-17) mg/dL Creatinine 0.79 (0.52-1.04) mg/dL Est GFR (CKD-EPI)AfAm >90 (>60 ml/min/1.73 sqM) Est GFR (CKD-EPI)NonAf >90 (>60 ml/min/1.73 sqM) Glucose 84 (74-99) mg/dL Plasma Lactic Acid Janes 1.1 (0.7-2.0) mmol/L Calcium 9.5 (8.4-10.2) mg/dL Total Bilirubin 1.3 (0.2-1.3) mg/dL AST 22 (14-36) U/L ALT 13 (4-34) U/L Alkaline Phosphatase 50 (38-126) U/L Total Protein 7.0 (6.3-8.2) g/dL Albumin 4.3 (3.5-5.0) g/dL Amylase 54 (30-110) U/L Lipase 96 (23-300) U/L Urine Color Urine Appearance (Clear) Urine pH (5.0-8.0) Ur Specific [place] (1.001-1.035) Urine Protein (Negative) Urine Glucose (UA) (Negative) Urine Ketones (Negative) Urine Blood (Negative) Urine Nitrite (Negative) Urine Bilirubin (Negative) Urine Urobilinogen (<2.0) mg/dL Ur Leukocyte Esterase (Negative) Urine RBC (0-5) /hpf Urine WBC (0-5) /hpf Ur Squamous Epith Cells (0-4) /hpf Urine Bacteria (None) /hpf Urine Mucus (None) /hpf Urine HCG, Qual Not Detected (Not Detectd) Disposition <Xochitl Yost - Last Filed: 05/06/24 15:01> Is patient prescribed a controlled substance at d/c from ED?: No Time of Disposition: 18:22 <Rosalva Rojas - Last Filed: 05/06/24 18:43> Clinical Impression: External hemorrhoids, Rectal bleeding Disposition: HOME SELF-CARE Condition: Stable Additional Instructions: Return the emergency department any new or worsening symptoms. Recommend a follow-up outpatient with general surgery for further evaluation. Use stool softener, increase fiber intake, sitz bath's, Preparation H for symptomatic relief. Prescriptions: Docusate [Colace] 100 mg PO BID #28 capsule Referrals: Joyce Trevino MD [Primary Care Provider] - 1-2 days
[2024-05-06 15:05] VITALS: RESP 18
[2024-05-06 16:10] LABS: Basophils % (A) 0 %; Eosinophils % (A) 1 %; HCT 32.1 % (34.0-46.0); HGB 10.2 gm/dL (11.4-16.0); Hypochromasia Slight; Lymphocytes # (A) 0.6 k/uL (1.0-4.8); Lymphocytes % (A) 19 %; MCH 30.6 pg (25.0-35.0); MCHC 31.8 g/dL (31.0-37.0); MCV 96.2 fL (80.0-100.0); Mean Platelet Volume 7.6; Monocytes # (A) 0.2 k/uL (0-1.0); Monocytes % (A) 5 %; Neutrophils # (A) 2.3 k/uL (1.3-7.7); Neutrophils % (A) 71 %; Platelet Count 341 k/uL (150-450); RBC 3.34 m/uL (3.80-5.40); RDW 12.6 % (11.5-15.5); WBC 3.2 k/uL (3.8-10.6)
[2024-05-06 16:23] LABS: Prothrombin Time 10.9 sec (10.0-12.5)
[2024-05-06 16:31] LABS: ALT 13 U/L (4-34); AST 22 U/L (14-36); African American GFR (CKD) >90 (>60 ml/min/1.73 sqM); Albumin 4.3 g/dL (3.5-5.0); Alkaline Phosphatase 50 U/L (38-126); Amylase 54 U/L (30-110); Anion Gap 9 mmol/L; Blood Urea Nitrogen 17 mg/dL (7-17); Calcium 9.5 mg/dL (8.4-10.2); Carbon Dioxide 23 mmol/L (22-30); Chloride 108 mmol/L (98-107); Glucose 84 mg/dL (74-99); Lipase 96 U/L (23-300); Non-African American GFR(CKD) >90 (>60 ml/min/1.73 sqM); Sodium 140 mmol/L (137-145); Total Bilirubin 1.3 mg/dL (0.2-1.3)
[2024-05-06 18:12] LABS: Appearance,Urine Cloudy (Clear); Bacteria,Urine Rare /hpf; Bilirubin,Urine Negative (Negative); Blood,Urine Negative (Negative); Color,Urine Light Yellow; Glucose,Urine (UA) Negative (Negative); Ketones,Urine Negative (Negative); Leukocyte Esterase,Urine Negative (Negative); Mucus,Urine Few /hpf; Nitrite,Urine Negative (Negative); Protein,Urine Negative (Negative); RBC,Urine 2 /hpf (0-5); Specific Gravity,Urine 1.025 (1.001-1.035); Squamous Epithelial Cell,Urine 9 /hpf (0-4); Urobilinogen,Urine <2.0 mg/dL (<2.0); WBC,Urine 5 /hpf (0-5)
[2024-05-06] MEDS: KETOROLAC 15 MG/ML 1 ML VIAL IVP STA (18:32)
[2024-05-06 18:47] VITALS: BP 142/95; PULSE 76; TEMP 98
== END 2024-05-06 18:46 | disposition home or self-care (01) ==
LOC: EC 14:44
DX: K92.9 Disease of digestive system, unspecified
CPT/HCPCS: 36415; 80053; 81001; 81025; 82150; 83605; 83690; 85025; 85610; 85730; 96374; 99283